=== PATIENT | female | born 1965 ===

== ENCOUNTER → 2017-02-19 | Outpatient (REF) ==
--- NOTE | 2017-02-19 15:56 | REP ---
Clinical: Pain and disability. Technique: AP, lateral, coned-down views of the lumbosacral spine. Findings: Alignment and lordosis maintained. No acute fracture / compression injury or subluxation. Moderate multilevel degenerative changes include marginal osteophytes, endplate sclerosis, disc space narrowing and hypertrophic facet changes. Findings are most pronounced at the L5-S1 level. Atherosclerotic calcifications of the aorta noted. Impression: Moderate multilevel degenerative changes. No acute fracture or subluxation. Signed by Tone Gosnalez MD 02/19/2017 03:48 P
== END ==
LOC: M SMT 15:08
PROVIDERS: ATTEND Internal Medicine
DX: Z02.71 Encounter for disability determination (principal)